=== PATIENT | female | born 1950 | race Caucasian/White ===

== ENCOUNTER 2024-03-16 15:30 | Inpatient (IN) ==
[2024-03-16] MEDS: DEXTROSE 50%-WATER ABBOJECT IVP STA (15:30)
[2024-03-16] MEDS: DEXTROSE 5%-NS IV SOLUTION 1,000 ML IV ONE (15:35)
--- NOTE | 2024-03-16 15:45 | ED.PDOC ---
General ED Provider: Dr. FIONA PALMER MD Chief Complaint: Hypoglycemia Stated Complaint: low BS x 1 hour Time Seen by Provider: 03/16/24 15:30 Mode of Arrival: Police Information Source: Family, Police and Other (Old records) Exam Limitations: Clinical condition and Altered mental status Nursing and Triage Documentation Reviewed and Agree: Yes Does Patient Take Opioids?: No Is Patient Opioid Naive?: No What is Opioid Naive?: *Opioid Naive implies the patient is not already taking opioids or not chronically receiving opioids on a daily basis. *PRN dosing is not "usually" associated with tolerance. *Patients are at higher risk of over-sedation and aspiration. Is Patient Opioid Tolerant?: No What is Opioid Tolerant?: *Opioid Tolerance implies less than the expected response to an opioid. *Acquired tolerance is defined by the patient taking 60mg of oral morphine daily (or equianalgesic dose of another opioid) for 1 week or more. *Often associated with chronic pain. *May take more than usual dose to achieve desired pain control. Endocrine Complaint Exam Diabetic Complication Complaint/Exam Onset/Duration: 1 hour Symptoms Are: Still present (But improving) Timing: Constant Initial Severity: Moderate Current Severity: Severe Character: Confused, Lethargic and Unresponsive Aggravating: Reports Medication change (? Excess dose) Alleviating: Reports Medications (IV dextrose 50) Associated Signs and Symptoms: Reports Decreased LOC Related History: Reports DM 1 and Insulin requiring Last Glucometer Readin Cardiac Risk Factors: Reports DM and Hypertension CVA Risk Factors: Reports DM and Hypertension Acetone on Breath: No Dry Mucous Membranes: No Kussmaul Respirations: No Meningeal Signs: No Focal Weakness: Right Facial Gait: Unable Nystagmus Present: No Gag Reflex Present: Yes Babinski Sign: Positive Left and Negative Left Differential Diagnoses: Acute LA, CVA, Hypoglycemia, Seizure and Sepsis Quality Indicator For Non-Traumatic Chest Pain/Syncope: EKG Performed (No acute ST-T wave changes) Review of Systems Review Of Systems Constitutional: Reports Malaise and Weakness; Denies Chills, Fever, Sweats or Loss of appetite Eyes: Denies Blindness, Blurred vision, Vision change or Photophobia Ears, Nose, Mouth, Throat: Denies Nose discharge, Epistaxis or Mouth pain Respiratory: Denies Cough, Shortness of Breath or Wheezing Cardiac: Reports Edema and Syncope; Denies Chest pain, Irregular heart rate, Lightheadedness or Palpitations GI: Reports Poor appetite; Denies Abdominal pain, Constipated, Diarrhea, Nausea or Vomiting : Denies Burning, Dysuria, Frequency, Flank pain, Hematuria, Incontinence or Urgency Musculoskeletal: Reports Joint pain and Muscle stiffness; Denies Neck pain Skin: Denies Bruising, Change in color or Dryness Neurological: Reports Weakness; Denies Anxiety, Depressed, Emotional problems, Cognitive dysfunction, Numbness or Tingling Endocrine: Denies Increased thirst or Unexplained weight loss Hematologic/Lymphatic: Reports No symptoms PFSH Medical History Closed fracture of left proximal humerus S42.202A - Unspecified fracture of upper end of left humerus, initial encounter for closed fracture (ICD-10) CKD (chronic kidney disease) stage 3, GFR 30-59 ml/min N18.30 - Chronic kidney disease, stage 3 unspecified (ICD-10) Diabetes E11.9 - Type 2 diabetes mellitus without complications (ICD-10) Family History Mother Diabetes Lung cancer FATHER Lung cancer Social History Smoking and tobacco status: Never smoker Alcohol intake: former Lives independently: Yes Surgical History Status post hip surgery Cephalomedullary nailing of left closed displaced intertrochanteric hip fracture Z98.890 - Other specified postprocedural states (ICD-10) Female Reproductive History Menstrual Date of menopause: 03/12/85 Physical Exam Physical Exam Appearance: Reports Ill-appearing, Well-nourished and Thin Ill-appearing: Moderate Pain Distress: None Eyes: Reports GARTH, EOMI, Conjunctiva clear, Right pupil size (3) and Left pupil size (3) ENT: Reports Ears normal, Nose normal and Other (Large torus palatini); Denies Epistaxis, Erythema or Exudate Neck: Supple Respiratory: Reports Breath sounds clear, Breath sounds equal and Respirations nonlabored; Denies Crackles or Wheezes Cardiovascular: Reports RRR, Pulses normal and No murmur GI/: Reports Soft, Nontender, No masses, Bowel sounds normal and No Organomegaly Musculoskeletal: Reports ROM intact, No calf tenderness, Limited ROM and Edema (2+ bilaterally) Skin: Reports Warm, Dry and Pale; Denies Cyanotic Neurological: Reports Sensation intact, Motor intact, Cranial nerves intact, Disoriented, Alert to verbal and Alert to pain; Denies Focal Deficit or CN Palsy Psychiatric: Reports Mood appropriate Interpretation EKG Interpretation Time of EKG #1: 15:34 Rate: Normal Rhythm: Sinus Ectopy: None [place]: [place] ST Segment: Normal Interpretation: Artifact but otherwise normal by my independent interpretation Radiology Interpretation Radiology Interpretation By: ED Physician Radiology Results: No acute changes Exam Interpreted: Portable CXR Xray Comments: By my independent interpretation Radiology Interpretation By: ED Physician Radiology Results: No acute changes Exam Interpreted: CT Scan (Head without contrast) Xray Comments: By my independent interpretation Physician Notification Case Discussed Physician Notified: Hospitalist Time of Notification: 17:23 Comments: Borderline criteria for observation. Potassium corrected. Recheck blood sugar noted and going downward on IV normal saline with D5 Hospitalist notified and will place in observation Course Course 03/16/24 15:53 03/16/24 15:53 Orders, Labs, Meds: Lab Review 03/16/24 03/16/24 03/16/24 15:53 16:52 17:38 WBC 5.65 RBC 3.08 L Hgb 8.9 L Hct 28.1 L MCV 91.2 MCH 28.9 MCHC 31.7 L RDW Coeff of Any 13.4 Plt Count 225 Immature Gran % (Auto) 0.2 Neut % (Auto) 75.4 H Lymph % (Auto) 10.6 Moore % (Auto) 7.4 Eos % (Auto) 5.5 Baso % (Auto) 0.9 Neut # (Auto) 4.3 Lymph # (Auto) 0.6 Moore # (Auto) 0.4 Eos # (Auto) 0.3 Baso # (Auto) 0.1 Immature Gran # (Auto) 0.0 Sodium 138.1 Potassium 3.06 L Chloride 103.0 Carbon Dioxide 20.5 L Anion Gap 17.66 BUN 65.3 H* Creatinine 3.84 H* Estimated GFR (MDRD) 12.00 BUN/Creatinine Ratio 17.00 Glucose 189.4 H Lactic Acid 0.82 Calcium 6.60 L Total Bilirubin 0.45 AST 25.6 ALT 12.0 Alkaline Phosphatase 85.7 Troponin I < 0.012 NT-Pro-B Natriuret Pep 4080 H Total Protein 8.34 H Albumin 4.22 Globulin 4.12 Albumin/Globulin Ratio 1.02 Urine Color Yellow Urine Clarity Cloudy Urine pH 5.5 Ur Specific [place] 1.020 Urine Protein 2+ H Urine Glucose (UA) Negative Urine Ketones Negative Urine Blood 1+ H Urine Nitrite Negative Urine Bilirubin Negative Urine Urobilinogen 0.2 Ur Leukocyte Esterase 2+ H Urine Microscopic RBC 10-20 Urine Microscopic WBC 50-100 Ur Squamous Epith Cells 5-10 Urine Bacteria 2+ Urine Opiates Screen Negative Ur Oxycodone Screen Negative Urine Methadone Screen Negative Ur Barbiturates Screen Negative U Tricyclic Antidepress Negative Ur Phencyclidine Scrn Negative Ur Amphetamine Screen Negative U Methamphetamines Scrn Negative U Benzodiazepines Scrn Negative Urine Cocaine Screen Negative U Cannabinoids Screen Negative Plasma/Serum Alcohol < 10.0 SARS CoV-2 RNA Rapid [place] Negative Orders Category Date Time Status OBSERVATION [PLACE PATIENT OBSERVATION] .TO MEDSURG ADMISSION 03/16/24 17:30 Active (MONITORED BED) EKG-(ED ONLY) Stat CARDIO 03/16/24 15:36 Completed TELEMETRY MONITORING TELE CARE 03/16/24 17:30 Active ACCUCHECK (ED) [ED ACCUCHECK ASSESSMENT] .ONCE EMERGENCY 03/16/24 15:36 Active BLOOD ALCOHOL Stat LAB 03/16/24 15:53 Completed BLOOD CULTURE (ED ONLY) Stat LAB 03/16/24 15:53 Received CBC W/ AUTO DIFF Stat LAB 03/16/24 15:53 Completed CMP [COMPREHENSIVE METABOLIC PANEL] Stat LAB 03/16/24 15:53 Completed COVID [SARS COV-2 RNA RAPID [place]] Stat LAB 03/16/24 17:38 Completed DRUG SCREEN, URINE, RAPID Stat LAB 03/16/24 16:52 Completed LACTIC ACID Stat LAB 03/16/24 15:53 Completed NT-PROBNP(ED) Stat LAB 03/16/24 15:53 Completed TROPONIN I Stat LAB 03/16/24 15:53 Completed URINALYSIS C & S IF INDICATED Stat LAB 03/16/24 16:52 Completed URINE CULTURE Stat LAB 03/16/24 16:52 Received Dextrose 5 % and 0.9 % NaCl [Dextrose 5%-Ns IV Solution Meds 03/16/24 15:36 Active ] 1,000 ml IV 125 mls/hr Dextrose 50 % in Water [Dextrose 50%-Water Abboject] Meds 03/16/24 15:39 Discontinued 50 ml IVP ONCE STA Potassium Chloride [K-Dur] Meds 03/16/24 17:22 Discontinued 20 meq PO ONCE ONE CT HEAD W/O CONTRAST Stat RADS 03/16/24 15:36 Completed CXR [CHEST, 1V AP ONLY] Stat RADS 03/16/24 15:36 Completed Medications Generic Name Dose Route Start Last Admin Trade Name Freq PRN Reason Stop Dose Admin Dextrose/Sodium Chloride 1,000 mls @ 125 mls/hr 03/16/24 15:36 03/16/24 15:35 Dextrose 5%-Ns Iv Solution IV 03/16/24 23:35 125 mls/hr .Q8H ONE Administration Discontinued Medications Generic Name Dose Route Start Last Admin Trade Name Freq PRN Reason Stop Dose Admin Dextrose 50 ml 03/16/24 15:39 03/16/24 15:30 Dextrose 50 % In Water 50 Ml Disp.Syrin IVP 03/16/24 15:40 50 ml ONCE STA Administration Potassium Chloride 20 meq 03/16/24 17:22 03/16/24 17:29 Potassium Chloride 20 Meq Tab PO 03/16/24 17:23 20 meq ONCE ONE Administration Vital Signs: Temp Pulse Resp BP Pulse Ox 03/16/24 15:31 97.3 F L 72 20 133/63 95 EXAM: CHEST RADIOGRAPH TECHNIQUE: Single frontal chest radiograph. HISTORY: Altered mental status COMPARISON: None. FINDINGS: Cardiac silhouette appears prominent most likely artifactual due to patient significant anterior rotation towards the left side. Mediastinal size and pulmonary vasculature are normal. Left infrahilar bronchovascular markings prominence is suggestive of bronchitis and/or developing infiltrates. The remainder of the moderate expanded lungs are clear. The no acute osseous process is seen. IMPRESSION: Left lung infrahilar increased density could be due to subsegmental atelectasis, bronchitis and/or developing infiltrates. Precautionary follow-up ideally with a two-view chest study is recommended. Dictated By: DASHAWN MCGRATH MD EXAMINATION: HEAD CT WITHOUT CONTRAST HISTORY: Altered mental status. TECHNIQUE: Noncontrast CT of the brain was performed with images acquired from skull base to vertex. 2-D coronal and sagittal reformatted images were obtained from the axial source images. Contrast Dose: None. CT Dose Reduction Techniques Performed: Yes. COMPARISON: None. FINDINGS: Mild atrophy. No intracranial hemorrhage or significant extra-axial fluid collection. Mild nonspecific low-density changes of the periventricular white matter. Mota white differentiation is preserved. No mass effect or midline shift. No hydrocephalus. The orbits have a normal appearance. The visualized mastoid air cells and paranasal sinuses are clear. IMPRESSION: 1. No acute intracranial findings. 2. Mild atrophy and chronic microvascular ischemic changes. Electronically Signed By: Brady Steen M.D. Signing Date: 2024-03-16 16:14 Discharge Plan Discharge Patient Disposition: PLACED OBSERVATION Discharge Problem: Hypoglycemia associated with diabetes, Acute hypokalemia, Acute alteration in mental status, CKD stage 4 due to type 1 diabetes mellitus Anemia due to chronic kidney disease Qualifiers: Chronic kidney disease stage: stage 4 (GFR 15-29) Qualified Code(s): N18.4 - Chronic kidney disease, stage 4 (severe) Did you review [place] [employer]ELOPER for ALL controlled substances?: No ED Provider: FIONA PALMER Condition: Stable Physician Progress Note: Patient seen on arrival. Brought by [facility] deputy. EMS not available at the time. Placed on the cart and moved to room 5. IV access obtained x 2 sites. D50 given 1 amp. Initial blood sugar less than 50. Repeat blood sugar by protocol was 185. Patient waking up nicely. EKG shows no acute ST-T wave changes. Further metabolic workup initiated. Patient waking up. Able to answer questions. Has been on Basaglar 16 for quite some time. Denies chest pain. No headaches. No visual problems. Has not tried to exceed usual doses. Last known well was 1 hour according to family. Has not had a low blood sugar spell this bad in the past. Laboratory studies reviewed. Radiologist reports there could be an infiltrate in the left side of her chest. Concern is present because of possibility of aspiration. She does not have a cough. Not short of breath. She is more awake at this time. is at her bedside. Blood sugar was 60 this morning and she went ahead and took her 16 units of long-acting insulin.159 Hemoglobin is low. Her creatinine has been rising. She has a specialist in [place] that takes care of her renal function. She had labs done for that office this morning before the rest of this happened earlier in the afternoon. Oral potassium given 20 mEq Recheck blood sugar 159 Discussed with hospitalist. Will monitor overnight.
[2024-03-16 15:58] LABS: BASOPHILS # (AUTO) 0.1 K/uL (0-0.2); BASOPHILS % (AUTO) 0.9 % (0.0-3.0); EOSINOPHILS # (AUTO) 0.3 K/ul (0.0-0.7); EOSINOPHILS % (AUTO) 5.5 % (0.0-7.0); HEMATOCRIT 28.1 % (37.0-47.0); HEMOGLOBIN 8.9 g/dl (12.0-16.0); IMMATURE GRANULOCYTE % (AUTO) 0.2 % (0.0-5.0); LYMPHOCYTES # (AUTO) 0.6 K/uL (0.60-3.4); LYMPHOCYTES % (AUTO) 10.6 (10.0-50.0); MEAN CORPUSCULAR HEMOGLOBIN 28.9 pg (27.0-31.0); MEAN CORPUSCULAR HGB CONC 31.7 (31.8-35.4); MEAN CORPUSCULAR VOLUME 91.2 fl (81.0-99.0); MONOCYTES # (AUTO) 0.4 K/uL (0.4-2.0); MONOCYTES % (AUTO) 7.4 (0-10); NEUTROPHILS # (AUTO) 4.3 K/ul (2.0-6.9); NEUTROPHILS % (AUTO) 75.4 % (42.2-75.2); PLATELET COUNT 225 10^3/uL (140-440); RDW COEFFICIENT OF VARIATION 13.4 % (11.6-14.8); RED BLOOD COUNT 3.08 10^6/ul (4.20-5.40); WHITE BLOOD COUNT 5.65 K/ul (4.6-10.2)
[2024-03-16 16:13] LABS: ALBUMIN 4.22 g/dL (3.5-5.0); ALKALINE PHOSPHATASE 85.7 U/L (53-141); ASPARTATE AMINO TRANSFERASE 25.6 U/L (14-36); BILIRUBIN,TOTAL 0.45 mg/dL (0.2-1.3); CARBON DIOXIDE 20.5 mmol/L (22-30.0); GLUCOSE 189.4 mg/dL (74-106); POTASSIUM 3.06 mmol/L (3.5-5.1); SODIUM 138.1 mmol/L (134.5-145); TOTAL PROTEIN 8.34 g/dL (6.3-8.2)
--- NOTE | 2024-03-16 16:17 | DI ---
EXAM: CHEST RADIOGRAPH TECHNIQUE: Single frontal chest radiograph. HISTORY: Altered mental status COMPARISON: None. FINDINGS: Cardiac silhouette appears prominent most likely artifactual due to patient significant anterior rota tion towards the left side. Mediastinal size and pulmonary vasculature are normal. Left infrahilar bronchovascular markings prominence is suggestive of bronchitis and/or developing inf iltrates. The remainder of the moderate expanded lungs are clear. The no acute osseous process is seen. IMPRESSION: Left lung infrahilar increased density could be due to subsegmental atelectasis, bronchitis and/or de veloping infiltrates. Precautionary follow-up ideally with a two-view chest study is recommended.
--- NOTE | 2024-03-16 16:17 | CT ---
EXAMINATION: HEAD CT WITHOUT CONTRAST HISTORY: Altered mental status. TECHNIQUE: Noncontrast CT of the brain was performed with images acquired from skull base to vertex. 2-D coronal and sagittal reformatted images were obtained from the axial source images. Contrast Dose: None. CT Dose Reduction Techniques Performed: Yes. COMPARISON: None. FINDINGS: Mild atrophy. No intracranial hemorrhage or significant extra-axial fluid collection. Mild nonspecific low-density changes of the periventricular white matter. Mota white differentiation is preserved. No mass effect or midline shift. No hydrocephalus. The orbits have a normal appearance. The visualized mastoid air cells and paranasal sinuses are clear. IMPRESSION: 1. No acute intracranial findings. 2. Mild atrophy and chronic microvascular ischemic changes. All CT scans are performed using dose optimization techniques as appropriate to the performed exam an d include at least one of the following: Automated exposure control, adjustment of the mA and/or kV according t o size, and the use of iterative reconstruction technique.
[2024-03-16 16:20] LABS: BLOOD UREA NITROGEN 65.3 mg/dL (7-17); CREATININE 3.84 mg/dL (0.60-1.30)
[2024-03-16 16:21] LABS: BLOOD ALCOHOL < 10.0 mg/dL (0.0-50.0)
[2024-03-16 16:23] LABS: TROPONIN I < 0.012 ng/ml (0.0000-0.120)
[2024-03-16 17:01] LABS: BILIRUBIN,URINE Negative (NEGATIVE); CLARITY,URINE Cloudy (CLEAR); COLOR,URINE Yellow (YELLOW); GLUCOSE, URINE (UA) Negative (NEGATIVE); KETONES,URINE Negative (NEGATIVE); LEUKOCYTE ESTERASE ,URINE 2+ (NEGATIVE); NITRITE,URINE Negative (NEGATIVE); PH,URINE 5.5 (5-9); PROTEIN,URINE 2+ (NEGATIVE); URINE, BLOOD 1+ (NEGATIVE); UROBILINOGEN,URINE 0.2 (0.2)
[2024-03-16 17:11] LABS: BACTERIA,URINE 2+ (NOT PRESENT); URINE WBC, MICROSCOPIC 50-100 (0-2)
[2024-03-16 17:14] LABS: AMPHETAMINE SCREEN,URINE NEGATIVE (NEGATIVE); BARBITURATE SCREEN,URINE NEGATIVE (NEGATIVE); BENZODIAZEPINES SCREEN,URINE NEGATIVE (NEGATIVE); CANNABINOID SCREEN,URINE NEGATIVE (NEGATIVE); COCAIN SCREEN,URINE NEGATIVE (NEGATIVE); METHADONE URINE SCREEN NEGATIVE (NEGATIVE); METHAMPHETAMINES SCREEN,URINE NEGATIVE (NEGATIVE); OPIATE SCREEN,URINE NEGATIVE (NEGATIVE); OXYCODONE URINE SCREEN NEGATIVE (NEGATIVE); PHENCYCLIDINE SCREEN,URINE NEGATIVE (NEGATIVE); TRICYCLIC ANTIDEPRESSANTS URIN NEGATIVE (NEGATIVE)
[2024-03-16] MEDS: K-DUR PO ONE (17:29)
[2024-03-16 17:58] LABS: SARS COV-2 RNA RAPID NAAT NEGATIVE (NEGATIVE)
[2024-03-16] MEDS ORDERED: DEXTROSE 50%-WATER ABBOJECT IVP PRN (18:09)
[2024-03-16] MEDS ORDERED: CALCIUM GLUCONATE 1,000 MG/100 ML NS 1,000 MG/100 ML BAG IV ONE ×2 (18:17→18:26)
[2024-03-16] MEDS ORDERED: DEXTROSE 5%-NS IV SOLUTION 1,000 ML IV SCH (18:30)
[2024-03-16 19:25] VITALS: BMI 19.4
[2024-03-16] MEDS: ROCEPHIN 1 GM/50 ML D5W 1 GM/50 ML BAG IV SCH (19:32)
[2024-03-16] MEDS: SODIUM CHLORIDE 1,000 ML IV SCH (20:49)
[2024-03-16] MEDS: SODIUM BICARBONATE PO SCH (20:50)
[2024-03-16] MEDS: CALCIUM GLUCONATE 1,000 MG/100 ML NS 1,000 MG/100 ML BAG IV ONE ×2 (21:24→21:32)
[2024-03-17 05:38] LABS: BASOPHILS % (AUTO) 0.3 % (0.0-3.0); EOSINOPHILS # (AUTO) 0.3 K/ul (0.0-0.7); EOSINOPHILS % (AUTO) 4.7 % (0.0-7.0); HEMATOCRIT 25.9 % (37.0-47.0); HEMOGLOBIN 8.4 g/dl (12.0-16.0); IMMATURE GRANULOCYTE % (AUTO) 0.2 % (0.0-5.0); LYMPHOCYTES # (AUTO) 0.7 K/uL (0.60-3.4); LYMPHOCYTES % (AUTO) 12.2 (10.0-50.0); MEAN CORPUSCULAR HEMOGLOBIN 29.2 pg (27.0-31.0); MEAN CORPUSCULAR HGB CONC 32.4 (31.8-35.4); MEAN CORPUSCULAR VOLUME 89.9 fl (81.0-99.0); MONOCYTES # (AUTO) 0.5 K/uL (0.4-2.0); MONOCYTES % (AUTO) 9.4 (0-10); NEUTROPHILS # (AUTO) 4.2 K/ul (2.0-6.9); NEUTROPHILS % (AUTO) 73.2 % (42.2-75.2); PLATELET COUNT 199 10^3/uL (140-440); RDW COEFFICIENT OF VARIATION 13.5 % (11.6-14.8); RED BLOOD COUNT 2.88 10^6/ul (4.20-5.40); WHITE BLOOD COUNT 5.76 K/ul (4.6-10.2)
[2024-03-17 05:50] LABS: ALANINE AMINOTRANSFERASE 11.9 U/L (0-35); ALBUMIN 3.71 g/dL (3.5-5.0); ALKALINE PHOSPHATASE 67.5 U/L (53-141); ASPARTATE AMINO TRANSFERASE 26.4 U/L (14-36); BILIRUBIN,TOTAL 0.45 mg/dL (0.2-1.3); BLOOD UREA NITROGEN 56.9 mg/dL (7-17); CALCIUM 7.34 mg/dL (8.4-10.2); CARBON DIOXIDE 20.9 mmol/L (22-30.0); CHLORIDE 108.4 mmol/L (98-107); CREATININE 3.38 mg/dL (0.60-1.30); GLUCOSE 111.2 mg/dL (74-106); PHOSPHORUS 4.98 mg/dL (2.5-4.5); POTASSIUM 3.65 mmol/L (3.5-5.1); SODIUM 140.3 mmol/L (134.5-145); TOTAL PROTEIN 7.67 g/dL (6.3-8.2)
[2024-03-17] MEDS: BYSTOLIC PO SCH (08:36)
[2024-03-17] MEDS: NORVASC PO SCH (08:36)
--- NOTE | 2024-03-17 13:54 | PCM ---
Date of Service Date Seen by Provider: 03/17/24 Time Seen by Provider: 08:50 Admit Day/Time Admission Date: 03/16/24 Admission Time: 17:30 Reason for Admission Chief Complaint: HYPOGLYCEMIA Hospital Provider Hospital Provider: SOILA YUN PA-C, [facility] History of Present Illness History of Present Illness: Patient is a 73 year old female with pmhx of DMT2 on insulin, hypertension, and ckd (sees [facility] in [facility] for nephrology) who presents to ER unresponsi ve due to hypoglycemia. Pt was diagnosed with diabetes with a1c of 11.4 about 1 year ago and started on long acting insulin. She states she has never had a low until this incident. Glucose <50 upon arrival to ER. She continued to drop despite D5 fluids. UA suspect for UTI. Denies urinary symptoms. She was also noted to have low potassium and calcium. Cr and BUN above baseline. CT head negative. CXR showed potential pna, recommended repeat 2 view. Pt's mentation improved following d50 amp. Admitted to med surg. Today patient is feeling much better. She denies any complaints. States her glucose was only 61 yesterday morning and then she didn't eat any lunch. Her a1c today is 5.89. She states she actually had baseline labs drawn yesterday morning in preparation for her nephrology appointment next week. Case Discussed With Case Discussed With: Patient's case was discussed with the ER Physicians, Dr. Oliveira. [facility] Medical History Closed fracture of left proximal humerus S42.202A - Unspecified fracture of upper end of left humerus, initial encounter for closed fracture (ICD-10) CKD (chronic kidney disease) stage 3, GFR 30-59 ml/min N18.30 - Chronic kidney disease, stage 3 unspecified (ICD-10) Diabetes E11.9 - Type 2 diabetes mellitus without complications (ICD-10) Surgical History Status post hip surgery Cephalomedullary nailing of left closed displaced intertrochanteric hip fracture Z98.890 - Other specified postprocedural states (ICD-10) Family History Mother Diabetes Lung cancer FATHER Lung cancer Social History Smoking and tobacco status: Never smoker Alcohol intake: former Lives independently: Yes Allergies Allergies Allergy/AdvReac Type Severity Reaction Status Date / Time NKA AdvReac Uncoded 03/16/24 15:43 Current Medications Home Medications Acetaminophen (Acetaminophen 325 Mg Tablet) 650 mg PO Q4H PRN PRN Reason: Mild Pain Amlodipine Besylate (Amlodipine Besylate 5 Mg Tablet) 10 mg PO DAILY [facility] Last Admin: 03/17/24 08:36 Dose: 10 mg Cyclobenzaprine HCl (Cyclobenzaprine Hcl 10 Mg Tablet) 5 mg PO BID PRN PRN Reason: muscle spasm Dextrose (Dextrose 50 % In Water 50 Ml Disp.Syrin) 50 ml IVP ONCE PRN; Protocol PRN Reason: Unconscious Hypoglycemia Sodium Chloride (Sodium Chloride) 1,000 mls @ 100 mls/hr IV .Q10H [facility] Last Admin: 03/17/24 14:57 Dose: 100 mls/hr CEFTRIAXONE/D5W 1 GM PREMIX (Rocephin 1 Gm/50 Ml D5w) 1 gm in 50 mls @ 100 mls/hr IV BEDTIME LIOR Stop: 03/19/24 18:29 Nebivolol (Nebivolol Hcl 5 Mg Tablet) 20 mg PO QAM [facility] Last Admin: 03/17/24 08:36 Dose: 20 mg Ondansetron HCl (Ondansetron Hcl/Pf 4 Mg/2 Ml Sdv) 4 mg IVP Q6H PRN PRN Reason: Nausea / Vomiting Sodium Bicarbonate (Sodium Bicarbonate 650 Mg Tablet) 325 mg PO Q12HR [facility] Last Admin: 03/17/24 08:36 Dose: 325 mg Sodium Chloride (0.9% Sodium Chloride 10 Ml Disp.Syrin) 1 syr IVF Q8HR [facility]OR Last Admin: 03/17/24 12:46 Dose: 1 syr cyclobenzaprine 5 mg tablet 5 mg PO BID PRN muscle spasm #14 tabs 03/09/23 [Rx Confirmed 03/16/24] amlodipine 10 mg tablet 10 mg PO DAILY 03/16/24 [History Confirmed 03/16/24] furosemide 40 mg tablet 40 mg PO DAILY 03/16/24 [History Confirmed 03/16/24] insulin glargine 100 unit/mL (3 mL) subcutaneous pen (Lantus Solostar U-100 Insulin) 16 unit subcut QAM 03/16/24 [History Confirmed 03/16/24] nebivolol 20 mg tablet 20 mg PO QAM blood pressure 03/16/24 [History Confirmed 03/16/24] sodium bicarbonate 325 mg tablet 325 mg PO Q12HR 03/16/24 [History Confirmed 03/16/24] Opioid Naive vs. Tolerant Does Patient Take Opioids?: No Is Patient Opioid Naive?: Yes What is Opioid Naive?: *Opioid Naive implies the patient is not already taking opioids or not chronically receiving opioids on a daily basis. *PRN dosing is not "usually" associated with tolerance. *Patients are at higher risk of over-sedation and aspiration. Is Patient Opioid Tolerant?: No What is Opioid Tolerant?: *Opioid Tolerance implies less than the expected response to an opioid. *Acquired tolerance is defined by the patient taking 60mg of oral morphine daily (or equianalgesic dose of another opioid) for 1 week or more. *Often associated with chronic pain. *May take more than usual dose to achieve desired pain control. Review of Systems Constitutional: Reports Weakness; Denies Fever Head: Reports Normocephalic and Atraumatic Cardiovascular: Denies Chest pain Respiratory: Denies Cough or Shortness of air Gastrointestinal: Denies Nausea, Vomiting, Diarrhea, Abdominal pain or Melena Genitourinary: Denies Dysuria or Frequency Neurological: Reports Other (+Unresponsive upon arrival, at her baseline now ); Denies Seizure Physical examination Most Recent Vital Signs: Most Recent Vital Signs Temperature 99.1 F 03/17/24 10:15 Temperature Source Temporal Artery Scan 03/17/24 10:15 Temperature Source Infrared 03/16/24 15:31 Pulse Rate 81 03/17/24 10:15 Respiratory Rate 18 03/17/24 10:15 Blood Pressure 140/71 03/17/24 10:15 Blood Pressure Mean 94 03/17/24 10:15 Blood Pressure Left Arm 151/76 03/16/24 19:17 Blood Pressure Location Left Arm 03/17/24 10:15 Blood Pressure Position Sitting 03/17/24 10:15 O2 Sat by Pulse Oximetry 96 03/17/24 10:15 Oxygen Delivery Method Room Air 03/17/24 13:00 Height 5 ft 7 in 03/16/24 19:17 Weight 56.3 kg 03/16/24 19:17 Telemetry Type Remote Telemetry 03/17/24 12:59 Telemetry Monitoring Continues 03/17/24 12:59 Telemetry Heart Rate 81 03/17/24 12:59 EKG SC Interval 0.18 03/17/24 12:59 EKG QRS Interval 0.06 03/17/24 12:59 Telemetry Strip Reading NSR 03/17/24 12:59 Appearance: Positive No Apparent Distress and Alert and Oriented x3 Skin: Positive [place], Warm, Good Turgor and Good Color HEENT: Positive Normocephalic and Atraumatic Neck: Positive Supple and Midline Trachea Chest/Lungs: Positive Clear to Auscultation Bilaterally; Negative Rales, Rhonci or Wheezes Heart: Positive RRR GI/: Positive Soft, Nontender, Bowel Sounds Normal and No Distention Extremities: Positive Edema (1+ pitting edema chuy lower ext. ) Neurological: Positive Cranial Nerves Intact, Alert, Oriented and Muscle Strength 5/5 in Upper and Lower Extremities Bilaterally Psychiatric: Positive Oriented x4, Appropriate Mood and Appropriate Affect Labs This Visit Labs This Visit: Labs This Visit 03/16/24 03/16/24 03/16/24 15:53 16:52 17:38 WBC 5.65 RBC 3.08 L Hgb 8.9 L Hct 28.1 L MCV 91.2 MCH 28.9 MCHC 31.7 L RDW Coeff of Any 13.4 Plt Count 225 Immature Gran % (Auto) 0.2 Neut % (Auto) 75.4 H Lymph % (Auto) 10.6 [place] % (Auto) 7.4 Eos % (Auto) 5.5 Baso % (Auto) 0.9 Neut # (Auto) 4.3 Lymph # (Auto) 0.6 [place] # (Auto) 0.4 Eos # (Auto) 0.3 Baso # (Auto) 0.1 Immature Gran # (Auto) 0.0 Sodium 138.1 Potassium 3.06 L Chloride 103.0 Carbon Dioxide 20.5 L Anion Gap 17.66 BUN 65.3 H* Creatinine 3.84 H* Estimated GFR (MDRD) 12.00 BUN/Creatinine Ratio 17.00 Glucose 189.4 H Hemoglobin A1c Lactic Acid 0.82 Calcium 6.60 L Phosphorus Magnesium 1.99 Total Bilirubin 0.45 AST 25.6 ALT 12.0 Alkaline Phosphatase 85.7 Troponin I < 0.012 NT-Pro-B Natriuret Pep 4080 H Total Protein 8.34 H Albumin 4.22 Globulin 4.12 Albumin/Globulin Ratio 1.02 25-OH Vitamin D Total Urine Color Yellow Urine Clarity Cloudy Urine pH 5.5 Ur Specific [place] 1.020 Urine Protein 2+ H Urine Glucose (UA) Negative Urine Ketones Negative Urine Blood 1+ H Urine Nitrite Negative Urine Bilirubin Negative Urine Urobilinogen 0.2 Ur Leukocyte Esterase 2+ H Urine Microscopic RBC 10-20 Urine Microscopic WBC 50-100 Ur Squamous Epith Cells 5-10 Urine Bacteria 2+ Urine Opiates Screen Negative Ur Oxycodone Screen Negative Urine Methadone Screen Negative Ur Barbiturates Screen Negative U Tricyclic Antidepress Negative Ur Phencyclidine Scrn Negative Ur Amphetamine Screen Negative U Methamphetamines Scrn Negative U Benzodiazepines Scrn Negative Urine Cocaine Screen Negative U Cannabinoids Screen Negative Plasma/Serum Alcohol < 10.0 SARS CoV-2 RNA Rapid SANOFRD Negative 03/17/24 05:32 WBC 5.76 RBC 2.88 L Hgb 8.4 L Hct 25.9 L MCV 89.9 MCH 29.2 MCHC 32.4 RDW Coeff of Any 13.5 Plt Count 199 Immature Gran % (Auto) 0.2 Neut % (Auto) 73.2 Lymph % (Auto) 12.2 [place] % (Auto) 9.4 Eos % (Auto) 4.7 Baso % (Auto) 0.3 Neut # (Auto) 4.2 Lymph # (Auto) 0.7 [place] # (Auto) 0.5 Eos # (Auto) 0.3 Baso # (Auto) 0.0 Immature Gran # (Auto) 0.0 Sodium 140.3 Potassium 3.65 Chloride 108.4 H Carbon Dioxide 20.9 L Anion Gap 14.65 BUN 56.9 H Creatinine 3.38 H Estimated GFR (MDRD) 13.00 BUN/Creatinine Ratio 16.83 Glucose 111.2 H D Hemoglobin A1c 5.89 Lactic Acid Calcium 7.34 L Phosphorus 4.98 H Magnesium Total Bilirubin 0.45 AST 26.4 ALT 11.9 Alkaline Phosphatase 67.5 Troponin I NT-Pro-B Natriuret Pep Total Protein 7.67 Albumin 3.71 Globulin 3.96 Albumin/Globulin Ratio 0.93 25-OH Vitamin D Total 47.3 Urine Color Urine Clarity Urine pH Ur Specific [place] Urine Protein Urine Glucose (UA) Urine Ketones Urine Blood Urine Nitrite Urine Bilirubin Urine Urobilinogen Ur Leukocyte Esterase Urine Microscopic RBC Urine Microscopic WBC Ur Squamous Epith Cells Urine Bacteria Urine Opiates Screen Ur Oxycodone Screen Urine Methadone Screen Ur Barbiturates Screen U Tricyclic Antidepress Ur Phencyclidine Scrn Ur Amphetamine Screen U Methamphetamines Scrn U Benzodiazepines Scrn Urine Cocaine Screen U Cannabinoids Screen Plasma/Serum Alcohol SARS CoV-2 RNA Rapid [facility] Microbiology This Visit 03/16/24 16:52 Urine,Clean Catch Urine Culture - Preliminary Imaging Imaging: EXAM: CHEST RADIOGRAPH TECHNIQUE: Single frontal chest radiograph. HISTORY: Altered mental status COMPARISON: None. FINDINGS: Cardiac silhouette appears prominent most likely artifactual due to patient significant anterior rotation towards the left side. Mediastinal size and pulmonary vasculature are normal. Left infrahilar bronchovascular markings prominence is suggestive of bronchitis and/or developing infiltrates. The remainder of the moderate expanded lungs are clear. The no acute osseous process is seen. IMPRESSION: Left lung infrahilar increased density could be due to subsegmental atelectasis, bronchitis and/or developing infiltrates. Precautionary follow-up ideally with a two-view chest study is recommended. EXAMINATION: HEAD CT WITHOUT CONTRAST HISTORY: Altered mental status. TECHNIQUE: Noncontrast CT of the brain was performed with images acquired from skull base to vertex. 2-D coronal and sagittal reformatted images were obtained from the axial source images. Contrast Dose: None. CT Dose Reduction Techniques Performed: Yes. COMPARISON: None. FINDINGS: Mild atrophy. No intracranial hemorrhage or significant extra-axial fluid collection. Mild nonspecific low-density changes of the periventricular white matter. Mota white differentiation is preserved. No mass effect or midline shift. No hydrocephalus. The orbits have a normal appearance. The visualized mastoid air cells and paranasal sinuses are clear. IMPRESSION: 1. No acute intracranial findings. 2. Mild atrophy and chronic microvascular ischemic changes. Review Statement Review Statement: I have independently reviewed and interpreted the labs/EKGs/imaging that were ordered by the ER provider. I have reviewed all outside records that are available currently in our EMR including imaging/notes/labs from previous visits. Plan Plan: 1. Hypoglycemia, severe - Resolved. Holding insulin. Accuchecks q4hrs. A1c improved greatly to 5.89. 2. UTI - Growing gram neg organisms. Cont rocephin. 3. ABEL stage I on CKD - Baseline Cr about 2.2. Continue gentle hydration. F/u with nephrology next week as scheduled. Will send labs to them upon discharge. Hold lasix. 4. Hypocalcemia - Not noted on previous labs. Improved today following 2 gm calcium gluconate yesterday. Albumin normal. PTH, vitamin d ordered. Phosphorus mildly elevated, mag normal. 5. Hypertension - Cont home meds 6. Hypokalemia - Resolved 7. Abnormal CXR - Will repeat today, also could be chance patient aspirated when unresponsive. DVT Prophylaxis: Ambulation Time Spent: Greater than 80 minutes spent with patient, 50% of the time spent with this patient was devoted to counseling and coordination of care. [facility] minutes spent discussing advance care planning. Admit to: Made inpatient today Discussed Plan of Care with Dr. Dean Mckeon. Medications Medication Orders: Medications Ordered Category Date Time Status 0.9 % Sodium Chloride [Saline Flush] Meds 03/17/24 13:00 Active 1 syr IVF Q8HR Acetaminophen [Tylenol] Meds 03/16/24 18:09 Active 650 mg PO Q4H PRN Amlodipine Besylate [Norvasc] Meds 03/17/24 09:00 Active 10 mg PO DAILY Ceftriaxone/D5w 1 gm Premix [Rocephin 1 gm/50 ml D5w] Meds 03/17/24 21:00 Active 1 gm in 50 ml IV BEDTIME Cyclobenzaprine HCl [Flexeril] Meds 03/16/24 19:56 Active 5 mg PO BID PRN Dextrose 50 % in Water [Dextrose 50%-Water Abboject] Meds 03/16/24 18:09 Active 50 ml IVP ONCE PRN Nebivolol HCl [Bystolic] Meds 03/17/24 09:00 Active 20 mg PO QAM Ondansetron HCl/Pf [Zofran Sdv] Meds 03/16/24 18:09 Active 4 mg IVP Q6H PRN Sodium Bicarbonate Meds 03/16/24 21:00 Active 325 mg PO Q12HR Sodium Chloride 0.9% [Sodium Chloride] 1,000 ml Meds 03/16/24 21:00 Active IV 100 mls/hr
--- NOTE | 2024-03-17 14:52 | DI ---
EXAM: CHEST RADIOGRAPH TECHNIQUE: Two views. Frontal and lateral. HISTORY: Pneumonia. COMPARISON: 03/16/2024 FINDINGS: Improved aeration to the left lower lobe. No consolidation, pleural effusion or pneumothorax. Under lying chronic interstitial changes. Cardiomediastinal silhouette and pulmonary vessels are within no rmal limits. Upper abdomen is unremarkable. The no acute bony abnormality. There is a mild reagan kell of the T12 vertebral body without retropulsion. IMPRESSION: 1. Improved aeration to the left lower lobe. No acute cardiopulmonary disease. 2. Mild compression of the T12 vertebral body without retropulsion. The age is indeterminate
[2024-03-17] MEDS: ROCEPHIN 1 GM/50 ML D5W 1 GM/50 ML BAG IV SCH (20:24)
[2024-03-17] MEDS: FLEXERIL PO PRN (20:25)
[2024-03-17] MEDS: LACTATED RINGERS 1,000 ML IV SCH (21:18)
[2024-03-18 05:52] LABS: BASOPHILS % (AUTO) 0.4 % (0.0-3.0); EOSINOPHILS # (AUTO) 0.3 K/ul (0.0-0.7); EOSINOPHILS % (AUTO) 5.5 % (0.0-7.0); HEMATOCRIT 27.8 % (37.0-47.0); HEMOGLOBIN 8.8 g/dl (12.0-16.0); IMMATURE GRANULOCYTE % (AUTO) 0.4 % (0.0-5.0); LYMPHOCYTES # (AUTO) 0.6 K/uL (0.60-3.4); LYMPHOCYTES % (AUTO) 11.7 (10.0-50.0); MEAN CORPUSCULAR HEMOGLOBIN 28.8 pg (27.0-31.0); MEAN CORPUSCULAR HGB CONC 31.7 (31.8-35.4); MEAN CORPUSCULAR VOLUME 90.8 fl (81.0-99.0); MONOCYTES # (AUTO) 0.4 K/uL (0.4-2.0); MONOCYTES % (AUTO) 8.6 (0-10); NEUTROPHILS # (AUTO) 3.8 K/ul (2.0-6.9); NEUTROPHILS % (AUTO) 73.4 % (42.2-75.2); PLATELET COUNT 209 10^3/uL (140-440); RED BLOOD COUNT 3.06 10^6/ul (4.20-5.40); WHITE BLOOD COUNT 5.11 K/ul (4.6-10.2)
[2024-03-18 06:00] LABS: ALANINE AMINOTRANSFERASE 12.8 U/L (0-35); ALBUMIN 3.78 g/dL (3.5-5.0); ALKALINE PHOSPHATASE 80.4 U/L (53-141); ASPARTATE AMINO TRANSFERASE 25.3 U/L (14-36); BILIRUBIN,TOTAL 0.51 mg/dL (0.2-1.3); BLOOD UREA NITROGEN 47.7 mg/dL (7-17); CALCIUM 7.42 mg/dL (8.4-10.2); CARBON DIOXIDE 18.2 mmol/L (22-30.0); CHLORIDE 112.7 mmol/L (98-107); CREATININE 3.07 mg/dL (0.60-1.30); GLUCOSE 138.9 mg/dL (74-106); POTASSIUM 3.66 mmol/L (3.5-5.1); TOTAL PROTEIN 7.85 g/dL (6.3-8.2)
[2024-03-18] MEDS: ZOFRAN SDV IVP PRN (06:19)
[2024-03-18 12:17] LABS: BLOOD UREA NITROGEN 47.8 mg/dL (7-17); CALCIUM 7.19 mg/dL (8.4-10.2); CARBON DIOXIDE 18.5 mmol/L (22-30.0); CHLORIDE 111.3 mmol/L (98-107); CREATININE 2.95 mg/dL (0.60-1.30); POTASSIUM 3.86 mmol/L (3.5-5.1); SODIUM 141.9 mmol/L (134.5-145)
[2024-03-18 12:36] LABS: LIPASE 49.9 U/L (23-300)
[2024-03-18 12:49] LABS: TROPONIN I 0.012 ng/ml (0.0000-0.120)
[2024-03-18] MEDS: REGLAN IVP ONE (13:41)
[2024-03-18] MEDS: PROTONIX IVP SCH (13:41)
[2024-03-18] MEDS: PEPCID IVP ONE (13:42)
--- NOTE | 2024-03-18 14:40 | PCM.PROG ---
Date/Time Seen Date Seen by Provider: 03/18/24 Time Seen by Provider: 09:00 Provider Provider: [facility], [facility] Chief Complaint Chief Complaint: HYPOGLYCEMIA Subjective Subjective: Renal function improving. However patient is feeling very nauseated today and didn't eat any breakfast or lunch. Doesn't feel well enough to go home. Had some improvement with relgan, pepcid, and protonix Objective Appearance: Positive No Apparent Distress and Alert and Oriented x3 Chest/Lungs: Positive Clear to Auscultation Bilaterally; Negative Rales, Rhonci or Wheezes Heart: Positive RRR GI/: Positive Soft, Nontender, Bowel Sounds Normal and No Distention Neurological: Positive Cranial Nerves Intact, Alert, Oriented and Muscle Strength 5/5 in Upper and Lower Extremities Bilaterally Vital Signs Vital Signs: Vital Signs: Last 24 Hours 03/17/24 18:00 03/17/24 19:00 03/17/24 20:00 Temperature 98.7 F Temperature Source Temporal Artery Scan Pulse Rate 76 Respiratory Rate 17 Blood Pressure 125/88 Blood Pressure Mean 100 Blood Pressure Location Left Arm Blood Pressure Position Sitting O2 Sat by Pulse Oximetry 93 L Oxygen Delivery Method Room Air Room Air Telemetry Type Remote Telemetry Telemetry Monitoring Continues Telemetry Heart Rate 78 EKG AR Interval 0.19 EKG QRS Interval 0.06 Telemetry Strip Reading SR 03/17/24 22:00 03/18/24 01:00 03/18/24 05:36 Temperature 98.5 F 99.6 F Temperature Source Temporal Artery Scan Temporal Artery Scan Pulse Rate 68 78 Respiratory Rate 18 20 Blood Pressure 138/76 128/65 Blood Pressure Mean 96 86 Blood Pressure Location Left Arm Left Arm Blood Pressure Position Supine O2 Sat by Pulse Oximetry 95 93 L Oxygen Delivery Method Room Air Room Air Telemetry Type Remote Telemetry Telemetry Monitoring Continues Telemetry Heart Rate 67 EKG AR Interval 0.19 EKG QRS Interval 0.08 Telemetry Strip Reading SR 03/18/24 07:00 03/18/24 10:00 03/18/24 10:35 Temperature 98.7 F Temperature Source Temporal Artery Scan Pulse Rate 92 Respiratory Rate 16 Blood Pressure 141/81 H Blood Pressure Mean 101 Blood Pressure Location Left Arm Blood Pressure Position O2 Sat by Pulse Oximetry 86 L 91 L Oxygen Delivery Method Room Air Room Air Telemetry Type Remote Telemetry Telemetry Monitoring Continues Telemetry Heart Rate 72 EKG AR Interval 0.16 EKG QRS Interval 0.06 Telemetry Strip Reading SR Lab Results Lab Results: Lab Results: Last 24 Hours 03/18/24 03/18/24 03/18/24 12:05 12:02 05:24 WBC 5.11 RBC 3.06 L Hgb 8.8 L Hct 27.8 L MCV 90.8 MCH 28.8 MCHC 31.7 L RDW Coeff of Any 14.0 Plt Count 209 Immature Gran % (Auto) 0.4 Neut % (Auto) 73.4 Lymph % (Auto) 11.7 [place] % (Auto) 8.6 Eos % (Auto) 5.5 Baso % (Auto) 0.4 Neut # (Auto) 3.8 Lymph # (Auto) 0.6 [place] # (Auto) 0.4 Eos # (Auto) 0.3 Baso # (Auto) 0.0 Immature Gran # (Auto) 0.0 Sodium 141.9 142.0 Potassium 3.86 3.66 Chloride 111.3 H 112.7 H Carbon Dioxide 18.5 L 18.2 L Anion Gap 15.96 14.76 BUN 47.8 H 47.7 H Creatinine 2.95 H 3.07 H Estimated GFR (MDRD) 16.00 15.00 BUN/Creatinine Ratio 16.20 15.53 Glucose 171.0 H 138.9 H Calcium 7.19 L 7.42 L Total Bilirubin 0.51 AST 25.3 ALT 12.8 Alkaline Phosphatase 80.4 Troponin I 0.012 Total Protein 7.85 Albumin 3.78 Globulin 4.07 Albumin/Globulin Ratio 0.92 Lipase 49.9 PTH Intact 03/17/24 05:32 WBC RBC Hgb Hct MCV MCH MCHC RDW Coeff of Any Plt Count Immature Gran % (Auto) Neut % (Auto) Lymph % (Auto) [place] % (Auto) Eos % (Auto) Baso % (Auto) Neut # (Auto) Lymph # (Auto) [place] # (Auto) Eos # (Auto) Baso # (Auto) Immature Gran # (Auto) Sodium Potassium Chloride Carbon Dioxide Anion Gap BUN Creatinine Estimated GFR (MDRD) BUN/Creatinine Ratio Glucose Calcium Total Bilirubin AST ALT Alkaline Phosphatase Troponin I Total Protein Albumin Globulin Albumin/Globulin Ratio Lipase PTH Intact 254 H Additional Comments Additional Comments: I have independently reviewed and interpreted the labs/EKGs/imaging ordered during this hospital stay. I have reviewed outside records that are available in our EMR that pertain to medical stay including imaging/notes/labs from previous visits. Active Medications Active Medications: Medications Generic Name Dose Route Start Last Admin Trade Name Freq PRN Reason Stop Dose Admin Acetaminophen 650 mg 03/16/24 18:09 Acetaminophen 325 Mg Tablet PO Q4H PRN Mild Pain Amlodipine Besylate 10 mg 03/17/24 09:00 03/18/24 09:55 Amlodipine Besylate 5 Mg Tablet PO 10 mg DAILY LIOR Administration Cyclobenzaprine HCl 5 mg 03/16/24 19:56 03/17/24 20:25 Cyclobenzaprine Hcl 10 Mg Tablet PO 5 mg BID PRN Administration muscle spasm Dextrose 50 ml 03/16/24 18:09 Dextrose 50 % In Water 50 Ml Disp.Syrin IVP ONCE PRN Unconscious Hypoglycemia Protocol CEFTRIAXONE/D5W 1 GM PREMIX 1 gm in 50 mls @ 100 mls/hr 03/17/24 21:00 03/17/24 20:24 Rocephin 1 Gm/50 Ml D5w IV 03/19/24 18:29 100 mls/hr BEDTIME LIOR Administration Lactated Ringer's 1,000 mls @ 125 mls/hr 03/18/24 08:43 Lactated Ringers IV .Q8H LIOR Nebivolol 20 mg 03/17/24 09:00 03/18/24 09:56 Nebivolol Hcl 5 Mg Tablet PO 20 mg QAM [facility]OR Administration Ondansetron HCl 4 mg 03/16/24 18:09 03/18/24 06:19 Ondansetron Hcl/Pf 4 Mg/2 Ml Sdv IVP 4 mg Q6H PRN Administration Nausea / Vomiting Pantoprazole Sodium 40 mg 03/18/24 12:10 03/18/24 13:41 Pantoprazole Sodium 40 Mg Vial IVP 40 mg DAILY LIOR Administration Sodium Bicarbonate 325 mg 03/16/24 21:00 03/18/24 09:54 Sodium Bicarbonate 650 Mg Tablet PO 325 mg Q12HR [facility] Administration Sodium Chloride 1 syr 03/17/24 13:00 03/18/24 04:27 0.9% Sodium Chloride 10 Ml Disp.Syrin IVF Not Given Q8HR [facility] Plan Plan: 1. Hypoglycemia, severe - Resolved. Holding insulin. Accuchecks q6hrs. A1c improved greatly to 5.89. 2. UTI due to e coli - transition to oral keflex 3. ABEL stage I on CKD - Baseline Cr about 2.2. Improving. Continue gentle hydration. F/u with nephrology next week as scheduled. Will send labs to them upon discharge. Hold lasix. 4. Hypocalcemia - Not noted on previous labs. Improved today following 2 gm calcium gluconate upon admission. Albumin normal. PTH high, vitamin d pending. Phosphorus mildly elevated, mag normal. Likely due to her chronic CKD. 5. Hypertension - Cont home meds 6. Hypokalemia - Resolved 7. Abnormal CXR - Repeat CXR was negative for acute findings 8. Intractable nausea - zofran, reglan prn. Tums prn. Add pepcid and protonix. Dispo: Discharge delayed due to nausea and unable to tolerate PO, risk of hypoglycemia again Review Statement Review Statement: I have personally discussed and reviewed the patient's visit/currently labs/imaging/decision making with Dr. Mckeon, my supervising attending. Greater that 50 minutes spent with patient, 50% of the time spent with this patient was devoted to counseling and coordination of care.
[2024-03-18] MEDS ORDERED: TUMS CHEWABLE PO PRN (15:12)
[2024-03-18] MEDS: LACTATED RINGERS 1,000 ML IV SCH ×2 (15:47→15:53)
[2024-03-18] MEDS: PEPCID PO SCH (17:00)
[2024-03-18] MEDS: TYLENOL PO PRN (18:26)
[2024-03-18] MEDS ORDERED: PEPCID PO SCH (21:00)
[2024-03-18 21:07] LABS: MOLECULAR FLU A NEGATIVE BY NAAT (NEGATIVE); MOLECULAR FLU B NEGATIVE BY NAAT (NEGATIVE); SARS COV-2 RNA RAPID NAAT NEGATIVE (NEGATIVE)
--- NOTE | 2024-03-18 21:07 | CT ---
EXAM: CT CHEST WITHOUT CONTRAST HISTORY: Fever and hypoxia COMPARISON: None TECHNIQUE: Multi-slice transaxial helical images are acquired through the thorax with coronal and sa gittal reconstructed images. All CT scans are performed using dose optimization techniques as approp riate to the performed exam and includes at least one of the following: Automated exposure control, adjustment of the mA and/or kV according to size, and the use of iterative reconstruction technique. CONTRAST: None FINDINGS: The ascending aorta is ectatic to 35 mm. The heart is mildly enlarged. Left anterior jordan cending and right coronary calcifications are noted. No pericardial effusion. An AP window lymph no de is suggested measuring up to 1 cm in short axis. A subcarinal lymph node is at least 1.3 cm in sh ort axis. Right hilar lymph nodes in the right lower paratracheal space lymph node are calcified. A small moderate right and small left pleural effusion layer dependently. The nondependent pulmonary veins are dilated. There is prominence of the interlobular septa diffusely, most pronounced in the l ower lungs. There is suggestion of a solid nodule in the right upper lobe measuring 0.8 cm on series 4 image number 29. An additional solid nodule suggested in the right middle lobe measuring 0.9 cm o n image number 41. The solid abdominal organs are normal in their visualized portions of the upper abdomen. There are mild chronic compression fractures at T12, T11, T1, T2 and T3. No acute osseous abnormalit ies or suspicious bone lesions. IMPRESSION: 1. Probable congestive heart failure with small to moderate right and small left pleural effusions al ana with pulmonary edema. Superimposed pneumonia cannot be excluded. 2. Solid nodules in the right upper lobe and middle lobe are indeterminate. Short-term follow-up rec ommended. 3. AP window lymphadenopathy. 4. Mild cardiomegaly. 5. Ectasia of the ascending aorta to 35 mm. 6. Chronic thoracic compression fractures. . All CT scans are performed using dose optimization techniques as appropriate to the performed exam an d include at least one of the following: Automated exposure control, adjustment of the mA and/or kV according t o size, and the use of iterative reconstruction technique.
--- NOTE | 2024-03-18 21:14 | CT ---
EXAM: CT OF THE ABDOMEN AND PELVIS WITHOUT CONTRAST History: Fever and diarrhea Technique: [address] of the abdomen pelvis without contrast FINDINGS: See chest CT for lung base details. No significant liver abnormality. The adrenals, pancr eas and spleen are unremarkable. The stomach and hiatus are unremarkable.Cholelithiasis without ailyn cholecystic inflammation. Severe bilateral hydronephrosis and hydroureter to the urinary bladder. N o inflammatory changes. No urolithiasis. The appendix is normal. Bowel loops demonstrate normal ca liber. No inflamatory change seen in the mesentery or retroperitoneum. Atherosclerotic calcificatio n of the aorta without aneurysm. Normal urinary bladder. There is some pelvic floor relaxation. A few sigmoid colonic diverticula. No pelvic fat inflammation. No acute findings of the skeleton. Left hip transfemoral nail. Impression: 1. No inflammatory changes of the abdomen and pelvis 2. Cholelithiasis without CT evidence of cholecystitis 3. Severe bilateral hydronephrosis and hydroureter to the urinary bladder. Possible obstruction sec ondary to pelvic floor relaxation and cystocele All CT scans are performed using dose optimization techniques as appropriate to the performed exam an d include at least one of the following: Automated exposure control, adjustment of the mA and/or kV according t o size, and the use of iterative reconstruction technique.
[2024-03-18] MEDS: LASIX IVP ONE (22:08)
[2024-03-18] MEDS: OMNICEF PO SCH (22:08)
[2024-03-19 08:54] LABS: BASOPHILS % (AUTO) 0.5 % (0.0-3.0); EOSINOPHILS # (AUTO) 0.1 K/ul (0.0-0.7); HEMOGLOBIN 7.7 g/dl (12.0-16.0); IMMATURE GRANULOCYTE % (AUTO) 0.5 % (0.0-5.0); LYMPHOCYTES # (AUTO) 0.4 K/uL (0.60-3.4); LYMPHOCYTES % (AUTO) 10.1 (10.0-50.0); MEAN CORPUSCULAR HEMOGLOBIN 28.5 pg (27.0-31.0); MEAN CORPUSCULAR HGB CONC 30.8 (31.8-35.4); MEAN CORPUSCULAR VOLUME 92.6 fl (81.0-99.0); MONOCYTES # (AUTO) 0.5 K/uL (0.4-2.0); MONOCYTES % (AUTO) 11.9 (0-10); PLATELET COUNT 162 10^3/uL (140-440); RDW COEFFICIENT OF VARIATION 14.2 % (11.6-14.8); WHITE BLOOD COUNT 3.96 K/ul (4.6-10.2)
[2024-03-19 09:06] LABS: ALANINE AMINOTRANSFERASE 14.5 U/L (0-35); ALBUMIN 3.62 g/dL (3.5-5.0); ALKALINE PHOSPHATASE 61.6 U/L (53-141); ASPARTATE AMINO TRANSFERASE 32.9 U/L (14-36); BILIRUBIN,TOTAL 0.52 mg/dL (0.2-1.3); BLOOD UREA NITROGEN 43.8 mg/dL (7-17); CALCIUM 6.8 mg/dL (8.4-10.2); CARBON DIOXIDE 21.6 mmol/L (22-30.0); CHLORIDE 106.8 mmol/L (98-107); CREATININE 3.11 mg/dL (0.60-1.30); GLUCOSE 148.9 mg/dL (74-106); POTASSIUM 3.49 mmol/L (3.5-5.1); SODIUM 139.6 mmol/L (134.5-145); TOTAL PROTEIN 7.44 g/dL (6.3-8.2)
[2024-03-19] MEDS: K-DUR PO ONE (11:36)
[2024-03-19] MEDS: LASIX TAB PO SCH (11:36)
--- NOTE | 2024-03-19 14:15 | PCM.PROG ---
Date/Time Seen Date Seen by Provider: 03/19/24 Time Seen by Provider: 09:10 Provider Provider: SOILA YUN [facility]-C, [facility] Chief Complaint Chief Complaint: HYPOGLYCEMIA Subjective Subjective: Patient no longer feeling nauseated. Improved with protonix and pepcid. She's feel much better today. She did run a fever last night. Flu and covid negative. CT chest showing fluid overload. Ct abd/pelvis showing severe chuy hydronephrosis and hydroureter. Pts fluids were stopped and she got a dose of IV lasix. Today she is still 88-89% on RA. Objective Appearance: Positive No Apparent Distress and Alert and Oriented x3 Chest/Lungs: Positive Clear to Auscultation Bilaterally; Negative Rales, Rhonci or Wheezes Heart: Positive RRR GI/: Positive Soft, Nontender, Bowel Sounds Normal and No Distention Neurological: Positive Cranial Nerves Intact, Alert, Oriented and Muscle Strength 5/5 in Upper and Lower Extremities Bilaterally Additional Findings: 1+ pitting edema chuy Vital Signs Vital Signs: Vital Signs: Last 24 Hours 03/18/24 18:00 03/18/24 19:00 03/18/24 20:00 Temperature 101.7 F H Temperature Source Oral Pulse Rate 90 Respiratory Rate 18 Blood Pressure 138/68 Blood Pressure Mean 91 Blood Pressure Location Right Arm Blood Pressure Position Supine O2 Sat by Pulse Oximetry 91 L Oxygen Delivery Method Room Air Room Air Oxygen Flow Rate Telemetry Type Remote Telemetry Telemetry Monitoring Continues Telemetry Heart Rate 83 Telemetry SPO2 87 L EKG SC Interval 0.18 EKG QRS Interval 0.07 Telemetry Strip Reading SR 03/18/24 20:48 03/18/24 20:59 03/19/24 01:00 Temperature 99.6 F Temperature Source Temporal Artery Scan Pulse Rate 79 Respiratory Rate 15 Blood Pressure 122/73 Blood Pressure Mean 89 Blood Pressure Location Right Arm Blood Pressure Position Supine O2 Sat by Pulse Oximetry 94 L 98 Oxygen Delivery Method Nasal Cannula Nasal Cannula Oxygen Flow Rate 2 2 Telemetry Type Remote Telemetry Telemetry Monitoring Continues Telemetry Heart Rate 74 Telemetry SPO2 EKG SC Interval 0.20 EKG QRS Interval 0.07 Telemetry Strip Reading NSR 03/19/24 02:00 03/19/24 05:08 03/19/24 05:18 Temperature 97.1 F L 97.3 F L Temperature Source Temporal Artery Scan Temporal Artery Scan Pulse Rate 77 78 Respiratory Rate 15 18 Blood Pressure 133/70 117/62 Blood Pressure Mean 91 80 Blood Pressure Location Right Arm Right Arm Blood Pressure Position Supine Supine O2 Sat by Pulse Oximetry 98 98 97 Oxygen Delivery Method Nasal Cannula Nasal Cannula Nasal Cannula Oxygen Flow Rate 2 2 2 Telemetry Type Telemetry Monitoring Telemetry Heart Rate Telemetry SPO2 EKG SC Interval EKG QRS Interval Telemetry Strip Reading 03/19/24 07:00 03/19/24 08:00 03/19/24 10:00 Temperature 98.9 F Temperature Source Temporal Artery Scan Pulse Rate 73 Respiratory Rate 14 Blood Pressure 121/90 Blood Pressure Mean 100 Blood Pressure Location Right Arm Blood Pressure Position O2 Sat by Pulse Oximetry 95 Oxygen Delivery Method Room Air Room Air Oxygen Flow Rate Telemetry Type Remote Telemetry Telemetry Monitoring Continues Telemetry Heart Rate 74 Telemetry SPO2 98 EKG SC Interval 0.17 EKG QRS Interval 0.07 Telemetry Strip Reading SR 03/19/24 10:00 Temperature Temperature Source Pulse Rate Respiratory Rate Blood Pressure Blood Pressure Mean Blood Pressure Location Blood Pressure Position O2 Sat by Pulse Oximetry Oxygen Delivery Method Room Air Oxygen Flow Rate Telemetry Type Telemetry Monitoring Telemetry Heart Rate Telemetry SPO2 EKG SC Interval EKG QRS Interval Telemetry Strip Reading Lab Results Lab Results: Lab Results: Last 24 Hours 03/19/24 03/18/24 03/18/24 08:50 22:30 20:35 WBC 3.96 L RBC 2.70 L Hgb 7.7 L Hct 25.0 L MCV 92.6 MCH 28.5 MCHC 30.8 L RDW Coeff of Any 14.2 Plt Count 162 Immature Gran % (Auto) 0.5 Neut % (Auto) 75.0 Lymph % (Auto) 10.1 [place] % (Auto) 11.9 H Eos % (Auto) 2.0 Baso % (Auto) 0.5 Neut # (Auto) 3.0 Lymph # (Auto) 0.4 L [place] # (Auto) 0.5 Eos # (Auto) 0.1 Baso # (Auto) 0.0 Immature Gran # (Auto) 0.0 Sodium 139.6 Potassium 3.49 L Chloride 106.8 Carbon Dioxide 21.6 L Anion Gap 14.69 BUN 43.8 H Creatinine 3.11 H Estimated GFR (MDRD) 15.00 BUN/Creatinine Ratio 14.08 Glucose 148.9 H Calcium 6.80 L Total Bilirubin 0.52 AST 32.9 ALT 14.5 Alkaline Phosphatase 61.6 Total Protein 7.44 Albumin 3.62 Globulin 3.82 Albumin/Globulin Ratio 0.94 Vit D 1,25-Dihydroxy Procalcitonin 0.30 H 0.23 H Influ A Molecular Assay Negative by naat Influ B Molecular Assay Negative by naat SARS CoV-2 RNA Rapid [place] Negative 03/17/24 05:32 WBC RBC Hgb Hct MCV MCH MCHC RDW Coeff of Any Plt Count Immature Gran % (Auto) Neut % (Auto) Lymph % (Auto) [place] % (Auto) Eos % (Auto) Baso % (Auto) Neut # (Auto) Lymph # (Auto) [place] # (Auto) Eos # (Auto) Baso # (Auto) Immature Gran # (Auto) Sodium Potassium Chloride Carbon Dioxide Anion Gap BUN Creatinine Estimated GFR (MDRD) BUN/Creatinine Ratio Glucose Calcium Total Bilirubin AST ALT Alkaline Phosphatase Total Protein Albumin Globulin Albumin/Globulin Ratio Vit D 1,25-Dihydroxy 32.6 Procalcitonin Influ A Molecular Assay Influ B Molecular Assay SARS CoV-2 RNA Rapid [place] Additional Comments Additional Comments: I have independently reviewed and interpreted the labs/EKGs/imaging ordered during this hospital stay. I have reviewed outside records that are available in our EMR that pertain to medical stay including imaging/notes/labs from previous visits. Active Medications Active Medications: Medications Generic Name Dose Route Start Last Admin Trade Name Freq PRN Reason Stop Dose Admin Acetaminophen 650 mg 03/16/24 18:09 03/18/24 18:26 Acetaminophen 325 Mg Tablet PO 650 mg Q4H PRN Administration Mild Pain Amlodipine Besylate 10 mg 03/17/24 09:00 03/19/24 08:52 Amlodipine Besylate 5 Mg Tablet PO 10 mg DAILY LIOR Administration Calcium Carbonate/Glycine 500 mg 03/18/24 15:12 Calcium Carbonate 500 Mg Tab.Chew PO Q6H PRN Heartburn Cefdinir 300 mg 03/18/24 21:00 03/18/24 22:08 Cefdinir 300 Mg Capsule PO 03/21/24 20:59 300 mg BEDTIME LIOR Administration Cyclobenzaprine HCl 5 mg 03/16/24 19:56 03/17/24 20:25 Cyclobenzaprine Hcl 10 Mg Tablet PO 5 mg BID PRN Administration muscle spasm Dextrose 50 ml 03/16/24 18:09 Dextrose 50 % In Water 50 Ml Disp.Syrin IVP ONCE PRN Unconscious Hypoglycemia Protocol Famotidine 20 mg 03/18/24 17:00 03/18/24 17:00 Famotidine 20 Mg Tablet PO 20 mg Q48H LIOR Administration Furosemide 40 mg 03/19/24 10:35 03/19/24 11:36 Furosemide 40 Mg Tablet PO 40 mg QDAC2 LIOR Administration Nebivolol 20 mg 03/17/24 09:00 03/19/24 08:52 Nebivolol Hcl 5 Mg Tablet PO 20 mg QAM LIOR Administration Ondansetron HCl 4 mg 03/16/24 18:09 03/18/24 06:19 Ondansetron Hcl/Pf 4 Mg/2 Ml Sdv IVP 4 mg Q6H PRN Administration Nausea / Vomiting Pantoprazole Sodium 40 mg 03/18/24 12:10 03/19/24 08:52 Pantoprazole Sodium 40 Mg Vial IVP 40 mg DAILY LIOR Administration Sodium Bicarbonate 325 mg 03/16/24 21:00 03/19/24 08:52 Sodium Bicarbonate 650 Mg Tablet PO 325 mg Q12HR LIOR Administration Sodium Chloride 1 syr 03/17/24 13:00 03/19/24 06:00 0.9% Sodium Chloride 10 Ml Disp.Syrin IVF 1 syr Q8HR LIOR Administration Plan Plan: 1. Hypoglycemia, severe - Resolved. Holding insulin. Accuchecks q6hrs. A1c improved greatly to 5.89. Will hold insulin at discharge. 2. UTI due to e coli - transition to oral cefdinir. 3. ABEL stage I on CKD - Baseline Cr about 2.2. Improving. Pt became fluid overloaded, restarted lasix. 4. Hypocalcemia - Not noted on previous labs. Improved following 2 gm calcium gluconate upon admission. Albumin normal. PTH high, vitamin d pending. Phosphorus mildly elevated, mag normal. Likely due to her chronic CKD. Follow up nephrology. 5. Hypertension - Cont home meds 6. Hypokalemia - Resolved 7. Severe chuy hydronephrosis and hydroureter - Looking back at past imaging at [facility] patient had mild findings on imaging but urology didn't feel it warranted stenting at the time. This has likely been gradually worsening and now affecting her renal function. Uro referral upon discharge. Dispo: Discharge delayed due to patient being mildly fluid overloaded and hypoxic. Will continue lasix gently. Poss dc tomorrow. Review Statement Review Statement: I have personally discussed and reviewed the patient's visit/currently labs/imaging/decision making with Dr. Mckeon, my supervising attending. Greater that 50 minutes spent with patient, 50% of the time spent with this patient was devoted to counseling and coordination of care.
[2024-03-19] MEDS: LASIX IVP ONE (20:35)
[2024-03-20 05:48] LABS: BASOPHILS % (AUTO) 0.6 % (0.0-3.0); EOSINOPHILS # (AUTO) 0.3 K/ul (0.0-0.7); EOSINOPHILS % (AUTO) 7.8 % (0.0-7.0); HEMATOCRIT 24.8 % (37.0-47.0); HEMOGLOBIN 7.9 g/dl (12.0-16.0); IMMATURE GRANULOCYTE % (AUTO) 0.3 % (0.0-5.0); LYMPHOCYTES # (AUTO) 0.7 K/uL (0.60-3.4); LYMPHOCYTES % (AUTO) 18.4 (10.0-50.0); MEAN CORPUSCULAR HEMOGLOBIN 29.2 pg (27.0-31.0); MEAN CORPUSCULAR HGB CONC 31.9 (31.8-35.4); MEAN CORPUSCULAR VOLUME 91.5 fl (81.0-99.0); MONOCYTES # (AUTO) 0.6 K/uL (0.4-2.0); MONOCYTES % (AUTO) 15.9 (0-10); PLATELET COUNT 181 10^3/uL (140-440); RDW COEFFICIENT OF VARIATION 13.9 % (11.6-14.8); RED BLOOD COUNT 2.71 10^6/ul (4.20-5.40); WHITE BLOOD COUNT 3.58 K/ul (4.6-10.2)
[2024-03-20 06:00] LABS: ALANINE AMINOTRANSFERASE 15.3 U/L (0-35); ALBUMIN 3.76 g/dL (3.5-5.0); ALKALINE PHOSPHATASE 86.6 U/L (53-141); ASPARTATE AMINO TRANSFERASE 30.4 U/L (14-36); BILIRUBIN,TOTAL 0.42 mg/dL (0.2-1.3); BLOOD UREA NITROGEN 48.1 mg/dL (7-17); CALCIUM 6.63 mg/dL (8.4-10.2); CARBON DIOXIDE 20.9 mmol/L (22-30.0); CHLORIDE 106.5 mmol/L (98-107); CREATININE 3.38 mg/dL (0.60-1.30); GLUCOSE 111.2 mg/dL (74-106); POTASSIUM 3.37 mmol/L (3.5-5.1); SODIUM 139.2 mmol/L (134.5-145); TOTAL PROTEIN 7.41 g/dL (6.3-8.2)
[2024-03-20] MEDS: K-DUR PO ONE (09:09)
[2024-03-20] MEDS: K-DUR ONE (09:21)
[2024-03-20] MEDS ORDERED: CALCIUM GLUCONATE 10% IVP STA (10:33)
[2024-03-20] MEDS: CALCIUM GLUCONATE 1,000 MG/100 ML NS 1,000 MG/100 ML BAG IV ONE (10:58)
--- NOTE | 2024-03-20 11:25 | PCM.PROG ---
Date/Time Seen Date Seen by Provider: 03/20/24 Time Seen by Provider: 08:55 Provider [facility]YN [facility]EN[facility] Chief Complaint Chief Complaint: HYPOGLYCEMIA Subjective Subjective: Feeling much better today. Breathing improved. Nausea improved. Discussed renal function and importance of follow-up at discharge with nephrology and urology. Objective Appearance: Positive No Apparent Distress and Alert and Oriented x3 Chest/Lungs: Positive Symmetrical With Equal Breath Sounds, Clear to Auscultation Bilaterally and Good Air Movement all 4 Lung [place] Heart: Positive RRR and Pulses Normal GI/: Positive Soft, Nontender and Bowel Sounds Normal Musculoskeletal: Positive Not Examined Neurological: Positive Sensation Intact, Motor intact, Alert and Oriented Vital Signs Vital Signs: Vital Signs: Last 24 Hours 03/19/24 13:00 03/19/24 14:00 03/19/24 14:00 Temperature 97.6 F Temperature Source Temporal Artery Scan Pulse Rate 70 Respiratory Rate 16 Blood Pressure 126/68 Blood Pressure Mean 87 Blood Pressure Location Left Arm Blood Pressure Position O2 Sat by Pulse Oximetry 94 L 90 L Oxygen Delivery Method Nasal Cannula Room Air Oxygen Flow Rate 1 Telemetry Type Remote Telemetry Telemetry Monitoring Continues Telemetry Heart Rate 71 Telemetry SPO2 98 EKG TN Interval 0.15 EKG QRS Interval 0.05 L Telemetry Strip Reading SR 03/19/24 17:38 03/19/24 19:00 03/19/24 19:30 Temperature 98 F Temperature Source Temporal Artery Scan Pulse Rate 71 Respiratory Rate 14 20 Blood Pressure 138/75 Blood Pressure Mean 96 Blood Pressure Location Right Arm Blood Pressure Position Sitting O2 Sat by Pulse Oximetry 95 Oxygen Delivery Method Nasal Cannula Nasal Cannula Oxygen Flow Rate 1 1 Telemetry Type Remote Telemetry Telemetry Monitoring Continues Telemetry Heart Rate 74 Telemetry SPO2 95 EKG TN Interval 0.15 EKG QRS Interval 0.08 Telemetry Strip Reading sinus rhythm 03/19/24 19:59 03/19/24 20:55 03/20/24 00:28 Temperature 97.4 F L Temperature Source Temporal Artery Scan Pulse Rate 70 Respiratory Rate 18 Blood Pressure 139/76 Blood Pressure Mean 97 Blood Pressure Location Left Arm Blood Pressure Position Supine O2 Sat by Pulse Oximetry 95 94 L Oxygen Delivery Method Nasal Cannula Nasal Cannula Oxygen Flow Rate 1 1 Telemetry Type Remote Telemetry Telemetry Monitoring Continues Telemetry Heart Rate 72 Telemetry SPO2 96 EKG TN Interval 0.18 EKG QRS Interval 0.07 Telemetry Strip Reading sinus rhythm 03/20/24 04:58 03/20/24 06:00 03/20/24 10:00 Temperature 97.5 F L 98.1 F Temperature Source Temporal Artery Scan Temporal Artery Scan Pulse Rate 74 75 Respiratory Rate 18 20 Blood Pressure 125/68 132/83 Blood Pressure Mean 87 99 Blood Pressure Location Left Arm Left Arm Blood Pressure Position Supine Sitting O2 Sat by Pulse Oximetry 95 95 96 Oxygen Delivery Method Nasal Cannula Nasal Cannula Room Air Oxygen Flow Rate 1 2 Telemetry Type Telemetry Monitoring Telemetry Heart Rate Telemetry SPO2 EKG TN Interval EKG QRS Interval Telemetry Strip Reading 03/20/24 10:00 Temperature Temperature Source Pulse Rate Respiratory Rate Blood Pressure Blood Pressure Mean Blood Pressure Location Blood Pressure Position O2 Sat by Pulse Oximetry 94 L Oxygen Delivery Method Room Air Oxygen Flow Rate Telemetry Type Telemetry Monitoring Telemetry Heart Rate Telemetry SPO2 EKG TN Interval EKG QRS Interval Telemetry Strip Reading Lab Results Lab Results: Lab Results: Last 24 Hours 03/20/24 05:35 WBC 3.58 L RBC 2.71 L Hgb 7.9 L Hct 24.8 L MCV 91.5 MCH 29.2 MCHC 31.9 RDW Coeff of Any 13.9 Plt Count 181 Immature Gran % (Auto) 0.3 Neut % (Auto) 57.0 Lymph % (Auto) 18.4 [place] % (Auto) 15.9 H Eos % (Auto) 7.8 H Baso % (Auto) 0.6 Neut # (Auto) 2.0 Lymph # (Auto) 0.7 [place] # (Auto) 0.6 Eos # (Auto) 0.3 Baso # (Auto) 0.0 Immature Gran # (Auto) 0.0 Sodium 139.2 Potassium 3.37 L Chloride 106.5 Carbon Dioxide 20.9 L Anion Gap 15.17 BUN 48.1 H Creatinine 3.38 H Estimated GFR (MDRD) 13.00 BUN/Creatinine Ratio 14.23 Glucose 111.2 H Calcium 6.63 L Total Bilirubin 0.42 AST 30.4 ALT 15.3 Alkaline Phosphatase 86.6 D Total Protein 7.41 Albumin 3.76 Globulin 3.65 Albumin/Globulin Ratio 1.03 Additional Comments Additional Comments: I have independently reviewed and interpreted the labs/EKGs/imaging ordered during this hospital stay. I have reviewed outside records that are available in our EMR that pertain to medical stay including imaging/notes/labs from previous visits. Active Medications Active Medications: Medications Generic Name Dose Route Start Last Admin Trade Name Freq PRN Reason Stop Dose Admin Acetaminophen 650 mg 03/16/24 18:09 03/18/24 18:26 Acetaminophen 325 Mg Tablet PO 650 mg Q4H PRN Administration Mild Pain Amlodipine Besylate 10 mg 03/17/24 09:00 03/20/24 09:11 Amlodipine Besylate 5 Mg Tablet PO 10 mg DAILY LIOR Administration Calcium Carbonate/Glycine 500 mg 03/18/24 15:12 Calcium Carbonate 500 Mg Tab.Chew PO Q6H PRN Heartburn Cefdinir 300 mg 03/18/24 21:00 03/19/24 20:35 Cefdinir 300 Mg Capsule PO 03/21/24 20:59 300 mg BEDTIME LIOR Administration Cyclobenzaprine HCl 5 mg 03/16/24 19:56 03/17/24 20:25 Cyclobenzaprine Hcl 10 Mg Tablet PO 5 mg BID PRN Administration muscle spasm Dextrose 50 ml 03/16/24 18:09 Dextrose 50 % In Water 50 Ml Disp.Syrin IVP ONCE PRN Unconscious Hypoglycemia Protocol Famotidine 20 mg 03/18/24 17:00 03/18/24 17:00 Famotidine 20 Mg Tablet PO 20 mg Q48H ILOR Administration Furosemide 40 mg 03/19/24 10:35 03/20/24 05:23 Furosemide 40 Mg Tablet PO 40 mg QDAC2 LIOR Administration Nebivolol 20 mg 03/17/24 09:00 03/20/24 09:13 Nebivolol Hcl 5 Mg Tablet PO 20 mg QAM LIOR Administration Ondansetron HCl 4 mg 03/16/24 18:09 03/18/24 06:19 Ondansetron Hcl/Pf 4 Mg/2 Ml Sdv IVP 4 mg Q6H PRN Administration Nausea / Vomiting Pantoprazole Sodium 40 mg 03/18/24 12:10 03/20/24 09:06 Pantoprazole Sodium 40 Mg Vial IVP 40 mg DAILY LIOR Administration Sodium Bicarbonate 325 mg 03/16/24 21:00 03/20/24 09:04 Sodium Bicarbonate 650 Mg Tablet PO 325 mg Q12HR LIOR Administration Sodium Chloride 1 syr 03/17/24 13:00 03/20/24 05:23 0.9% Sodium Chloride 10 Ml Disp.Syrin IVF 1 syr Q8HR LIOR Administration Plan Plan: 1. Hypoglycemia, severe - Resolved. Holding insulin. Accuchecks q6hrs. A1c improved greatly to 5.89. Will hold insulin at discharge. 2. UTI due to e coli - transition to oral cefdinir. 3. ABEL stage I on CKD - Creatinine worsened today, likely due to extra lasix dose yesterday, Baseline Cr about 2.2., follow up with nephro on Saturday 4. Hypocalcemia - Not noted on previous labs. Improved following 2 gm calcium gluconate upon admission. Albumin normal. PTH high, vitamin d pending. Phosphorus mildly elevated, mag normal. Likely due to her chronic CKD. Follow up nephrology on Saturday. given additional calcium replacement 5. Hypertension - Cont home meds 6. Hypokalemia - Resolved 7. Severe chuy hydronephrosis and hydroureter - Looking back at past imaging at [facility] patient had mild findings on imaging but urology didn't feel it warranted stenting at the time. This has likely been gradually worsening and now affecting her renal function. Uro referral upon discharge. Dispo: Discharge delayed due to patient being mildly fluid overloaded and hypoxic. Weaning oxygen today. Monitor renal function in am and likely d/c tomorrow Review Statement Review Statement: I have personally discussed and reviewed the patient's visit/currently labs/im aging/decision making with Dr. Mckeon, my supervising attending. Greater that 50 minutes spent with patient, 50% of the time spent with this patient was devoted to counseling and coordination of care.
[2024-03-21 05:45] LABS: BASOPHILS % (AUTO) 0.5 % (0.0-3.0); EOSINOPHILS # (AUTO) 0.3 K/ul (0.0-0.7); EOSINOPHILS % (AUTO) 7.7 % (0.0-7.0); HEMATOCRIT 23.4 % (37.0-47.0); HEMOGLOBIN 7.5 g/dl (12.0-16.0); IMMATURE GRANULOCYTE % (AUTO) 0.5 % (0.0-5.0); LYMPHOCYTES # (AUTO) 0.7 K/uL (0.60-3.4); LYMPHOCYTES % (AUTO) 18.9 (10.0-50.0); MEAN CORPUSCULAR HEMOGLOBIN 28.8 pg (27.0-31.0); MEAN CORPUSCULAR HGB CONC 32.1 (31.8-35.4); MONOCYTES # (AUTO) 0.6 K/uL (0.4-2.0); MONOCYTES % (AUTO) 15.7 (0-10); NEUTROPHILS # (AUTO) 2.1 K/ul (2.0-6.9); NEUTROPHILS % (AUTO) 56.7 % (42.2-75.2); PLATELET COUNT 180 10^3/uL (140-440); RDW COEFFICIENT OF VARIATION 13.5 % (11.6-14.8); WHITE BLOOD COUNT 3.76 K/ul (4.6-10.2)
[2024-03-21 05:47] VITALS: BP 144/67; TEMP 98.7
[2024-03-21 05:56] LABS: ALANINE AMINOTRANSFERASE 14.2 U/L (0-35); ALBUMIN 3.53 g/dL (3.5-5.0); ALKALINE PHOSPHATASE 80.8 U/L (53-141); ASPARTATE AMINO TRANSFERASE 25.3 U/L (14-36); BILIRUBIN,TOTAL 0.35 mg/dL (0.2-1.3); BLOOD UREA NITROGEN 45.8 mg/dL (7-17); CALCIUM 6.74 mg/dL (8.4-10.2); CARBON DIOXIDE 23.3 mmol/L (22-30.0); CHLORIDE 106.1 mmol/L (98-107); CREATININE 3.15 mg/dL (0.60-1.30); GLUCOSE 118.3 mg/dL (74-106); POTASSIUM 3.55 mmol/L (3.5-5.1); SODIUM 138.7 mmol/L (134.5-145); TOTAL PROTEIN 7.14 g/dL (6.3-8.2)
[2024-03-21 08:36] VITALS: PULSE 76; RESP 20
--- NOTE | 2024-03-21 09:43 | DCSUM ---
Admission Date Admission Date: 03/16/24 Discharge Date Discharge Date: 03/21/24 Admission Diagnosis Admission Diagnosis: 1. Hypoglycemia, severe 2. UTI 3. ABEL stage I on CKD 4. Hypocalcemia 5. Hypertension 6. Hypokalemia 7. Abnormal CXR Discharge Diagnosis Discharge Diagnosis: 1. Hypoglycemia, severe - Resolved. Stopped lantus 2. UTI due to e coli - Improving, Rx for Cefdinir 3. ABEL stage I on CKD 4. Hypocalcemia - Likely due to her chronic CKD. Follow up nephrology on Saturday. 5. Hypertension - Chronic, stable 6. Hypokalemia - Resolved 7. Severe chuy hydronephrosis and hydroureter - worsened from previous imaging, referral sent to Urology Hospital Provider Hospital [facility] Primary Care Physician: CYRIL RIVERA Summary of History and Physical Summary of History and Physical: Patient is a 73 year old female with pmhx of DMT2 on insulin, hypertension, and ckd (sees [facility] in [facility] for nephrology) who presents to ER unresponsive due to hypoglycemia. Pt was diagnosed with diabetes with a1c of 11.4 about 1 year ago and started on long acting insulin. She states she has never had a low until this incident. Glucose <50 upon arrival to ER. She continued to drop despite D5 fluids. UA suspect for UTI. Denies urinary symptoms. She was also noted to have low potassium and calcium. Cr and BUN above baseline. CT head negative. CXR showed potential pna, recommended repeat 2 view. Pt's mentation improved following d50 amp. Admitted to med surg. Today patient is feeling much better. She denies any complaints. States her glucose was only 61 yesterday morning and then she didn't eat any lunch. Her a1c today is 5.89. She states she actually had baseline labs drawn yesterday morning in preparation for her nephrology appointment next week. Hospital Course Subjective: 03/17/24 Hypoglycemia resolved overnight. Urine culture showed growth of gram negative organisms. On Rocephin ABEL stage I on CKD - Baseline Cr about 2.2. Lasix held. Continued fluids. Hypocalcemia - Not noted on previous labs. Improved following 2 gm calcium gluconate yesterday. Albumin normal. PTH, vitamin d ordered. Phosphorus mildly elevated, mag normal. CXR reports recommended 2 view due to abnormal findings. Repeat ordered. 03/18/24 Nauseated unable to eat any meals. Initial plan to discharge today but unable to tolerated PO and at risk for hypoglycemia. Given zofran and reglan prn as well as pepcid and protonix. Urine C&S growth of E coli, transition to oral keflex Creatinine mildly improving, continued fluids. Has f/u with nephrology next week. Continued to hold lasix Albumin normal. PTH high, vitamin d pending. Phosphorus mildly elevated, mag normal. Hypocalcemia likely due to her chronic CKD. Repeat CXR was negative for acute findings 03/19/24 Patient no longer feeling nauseated. Improved with protonix and pepcid. She's feel much better today. Ran fever overnight. Flu and covid negative. CT chest showing fluid overload. Ct abd/pelvis showing severe chuy hydronephrosis and h ydroureter. Pts fluids were stopped and she got a dose of IV lasix. Today she is still 88- 89% on RA. Looking back at past imaging at [facility] patient had mild findings on imaging but urology didn't feel it warranted stenting at the time. This has likely been gradually worsening and now affecting her renal function. Uro referral upon discharge. 03/20/24 Feeling much better today. Weaned off of oxygen and able to remain on RA. Creatinine worsened today likely due to additional lasix dose yesterday. Additional calcium replacement given due to drop to 6.6 03/21/24 Able to remain on RA. Feeling much better. Nausea resolved. Blood glucose stable. Renal function improving. Referral to urology sent. Has follow-up with nephrology on Saturday. Will send clinicals. Sent Rx for rest of course of keflex. Stopped lantus due to A1C of 5 and hypoglycemia. No further changes to home medications at this time. Appearance: Pleasant, No Apparent Distress and Alert HEENT: MMM, Supple and No JVD CVS: No Murmur Abdomen: Soft, Non-Tender and No Distention Respiratory: No Dyspnea Extremities: No Edema Vital Signs: Most Recent Vital Signs Temperature 98.7 F 03/21/24 05:45 Temperature Source Temporal Artery Scan 03/21/24 05:45 Temperature Source Infrared 03/16/24 15:31 Pulse Rate 76 03/21/24 08:00 Respiratory Rate 20 03/21/24 08:00 Blood Pressure 144/67 H 03/21/24 05:45 Blood Pressure Mean 92 03/21/24 05:45 Blood Pressure Left Arm 151/76 03/16/24 19:17 Blood Pressure Location Left Arm 03/21/24 05:45 Blood Pressure Position Supine 03/20/24 21:18 O2 Sat by Pulse Oximetry 93 L 03/21/24 05:45 Oxygen Delivery Method Room Air 03/21/24 08:00 Oxygen Flow Rate 1 03/20/24 08:00 Height 5 ft 7 in 03/16/24 19:17 Weight 56.3 kg 03/16/24 19:17 Telemetry Type Remote Telemetry 03/21/24 07:00 Telemetry Monitoring Continues 03/21/24 07:00 Telemetry Heart Rate 69 03/21/24 07:00 Telemetry SPO2 96 03/21/24 07:00 EKG CA Interval 0.18 03/21/24 07:00 EKG QRS Interval 0.06 03/21/24 07:00 Telemetry Strip Reading NSR 03/21/24 07:00 Imaging: EXAM: CT OF THE ABDOMEN AND PELVIS WITHOUT CONTRAST FINDINGS: See chest CT for lung base details. No significant liver abnormality. The adrenals, pancreas and spleen are unremarkable. The stomach and hiatus are unremarkable.Cholelithiasis without pericholecystic inflammation. Severe bilateral hydronephrosis and hydroureter to the urinary bladder. No inflammatory changes. No urolithiasis. The appendix is normal. Bowel loops demonstrate normal caliber. No inflamatory change seen in the mesentery or retroperitoneum. Atherosclerotic calcification of the aorta without aneurysm. Normal urinary bladder. There is some pelvic floor relaxation. A few sigmoid colonic diverticula. No pelvic fat inflammation. No acute findings of the skeleton. Left hip transfemoral nail. Impression: 1. No inflammatory changes of the abdomen and pelvis 2. Cholelithiasis without CT evidence of cholecystitis 3. Severe bilateral hydronephrosis and hydroureter to the urinary bladder. Possible obstruction secondary to pelvic floor relaxation and cystocele EXAM: CT CHEST WITHOUT CONTRAST FINDINGS: The ascending aorta is ectatic to 35 mm. The heart is mildly en larged. Left anterior descending and right coronary calcifications are noted. No pericardial effusion. An AP window lymph node is suggested measuring up to 1 cm in short axis. A subcarinal lymph node is at least 1.3 cm in short axis. Right hilar lymph nodes in the right lower paratracheal space lymph node are calcified. A small moderate right and small left pleural effusion layer dependently. The nondependent pulmonary veins are dilated. There is prominence of the interlobular septa diffusely, most pronounced in the lower lungs. There is suggestion of a solid nodule in the right upper lobe measuring 0.8 cm on series 4 image number 29. An additional solid nodule suggested in the right middle lobe measuring 0.9 cm on image number 41. The solid abdominal organs are normal in their visualized portions of the upper abdomen. There are mild chronic compression fractures at T12, T11, T1, T2 and T3. No acute osseous abnormalities or suspicious bone lesions. IMPRESSION: 1. Probable congestive heart failure with small to moderate right and small left pleural effusions along with pulmonary edema. Superimposed pneumonia cannot be excluded. 2. Solid nodules in the right upper lobe and middle lobe are indeterminate. Short-term follow-up recommended. 3. AP window lymphadenopathy. 4. Mild cardiomegaly. 5. Ectasia of the ascending aorta to 35 mm. 6. Chronic thoracic compression fractures EXAMINATION: HEAD CT WITHOUT CONTRAST FINDINGS: Mild atrophy. No intracranial hemorrhage or significant extra-axial fluid collection. Mild nonspecific low-density changes of the periventricular white matter. Mota white differentiation is preserved. No mass effect or midline shift. No hydrocephalus. The orbits have a normal appearance. The visualized mastoid air cells and paranasal sinuses are clear. IMPRESSION: 1. No acute intracranial findings. 2. Mild atrophy and chronic microvascular ischemic changes. EXAM: CHEST RADIOGRAPH FINDINGS: Improved aeration to the left lower lobe. No consolidation, pleural effusion or pneumothorax. Underlying chronic interstitial changes. Cardiomediastinal silhouette and pulmonary vessels are within normal limits. Upper abdomen is unremarkable. The no acute bony abnormality. There is a mild compression of the T12 vertebral body without retropulsion. IMPRESSION: 1. Improved aeration to the left lower lobe. No acute cardiopulmonary disease. 2. Mild compression of the T12 vertebral body without retropulsion. The age is indeterminate Lab Results Last 24 Hours: 03/21/24 05:23 WBC 3.76 L RBC 2.60 L Hgb 7.5 L Hct 23.4 L MCV 90.0 MCH 28.8 MCHC 32.1 RDW Coeff of Any 13.5 Plt Count 180 Immature Gran % (Auto) 0.5 Neut % (Auto) 56.7 Lymph % (Auto) 18.9 [place] % (Auto) 15.7 H Eos % (Auto) 7.7 H Baso % (Auto) 0.5 Neut # (Auto) 2.1 Lymph # (Auto) 0.7 [place] # (Auto) 0.6 Eos # (Auto) 0.3 Baso # (Auto) 0.0 Immature Gran # (Auto) 0.0 Sodium 138.7 Potassium 3.55 Chloride 106.1 Carbon Dioxide 23.3 Anion Gap 12.85 BUN 45.8 H Creatinine 3.15 H Estimated GFR (MDRD) 14.00 BUN/Creatinine Ratio 14.53 Glucose 118.3 H Calcium 6.74 L Total Bilirubin 0.35 AST 25.3 ALT 14.2 Alkaline Phosphatase 80.8 Total Protein 7.14 Albumin 3.53 Globulin 3.61 Albumin/Globulin Ratio 0.97 Discharge Instructions Discharge Planning: Discharge Planning > 40 minutes If patient is discharged with left ventricular systolic dysfunction: No Discharged with a beta cindi? [] If no, why not? [] Discharged with an vish/arb? [] If no, why not? [] Diagnosis: UTI, Hypoglycemia, Hydronephrosis Diet: Regular Activity: as tolerated Medications: Maus Be sure to follow-up with Nephrology as scheduled. Follow-up with PCP next week as well following this hospital stay. You have been referred to [facility]. They will be in contact with you to initiate an appointment. If you have any questions or need to speak with them, their contact number is [phone]. Discharge Medications: RX At Discharge cefdinir 300 mg capsule 300 mg PO BEDTIME #2 caps 03/21/24 [Rx] Discharge Plan Discharge Discharge Orders: Discharge Patient (ONCE); Ordered 03/21/24 Ordered By: SUHAS BARRAZA Activity Restrictions/Additional Instructions: Diagnosis: UTI, Hypoglycemia, Hydronephrosis Diet: Regular Activity: as tolerated Medications: Christian Be sure to follow-up with Nephrology as scheduled. Follow-up with PCP next week as well following this hospital stay. You have been referred to [facility]. They will be in contact with you to initiate an appointment. If you have any questions or need to speak with them, their contact number is [phone]. Instructions: Urinary Tract Infection in Women (GEN), Chronic Kidney Disease (GEN), Hydronephrosis (GEN) Patient Disposition: HOME SELF-CARE Prescriptions: New cefdinir 300 mg Capsule 300 mg PO BEDTIME Qty: 2 0RF Continued amlodipine 10 mg tablet 10 mg PO DAILY Rx Instructions: in the evening furosemide 40 mg tablet 40 mg PO DAILY sodium bicarbonate 325 mg tablet 325 mg PO Q12HR nebivolol 20 mg tablet 20 mg PO QAM cyclobenzaprine 5 mg tablet 5 mg PO BID PRN (Reason: muscle spasm) Qty: 14 0RF Discontinued insulin glargine [Lantus Solostar U-100 Insulin] 100 unit/mL (3 mL) insulin pen 16 unit subcut QAM Did you review [place] [employer]ER for ALL controlled substances?: No Discussed opioids are addictive and Narcan is available by prescription or from pharmacy.: No Condition: Stable
== END 2024-03-21 10:40 | disposition home or self-care (01) | DRG 638 ==
LOC: MEDSURG B 15:30 → ED 15:30 → MEDSURG B 18:20
PROVIDERS: ADMIT Hospitalist; ATTEND Nurse Practitioner Family